=== PATIENT | female | born 1990 | race Caucasian/White ===

== ENCOUNTER 2018-01-13 23:17 | Emergency (ER) | payer MEDICAID, OTHER ==
[~2018-01-13] VITALS: Ht 172.7 cm; Wt 54.4 kg
[~2018-01-13 23:17] MED LIST: AZIT250T PO; ONDA8TAB62 PO; PREN1TAB PO
[2018-01-13 23:22] VITALS: BP 117/78
[2018-01-13] MEDS ORDERED: ketorolac trometh inj. 60 MG/2 ML VIAL IM ONE (23:40)
[2018-01-14] MEDS ORDERED: IBUP-1986 PO (00:25)
[2018-01-14] MEDS ORDERED: HYDR-565 PO (00:25)
== END 2018-01-14 00:59 | disposition home or self-care (01) ==
LOC: ER 23:17
DX: M62.830 Muscle spasm of back (principal); J45.909 Unspecified asthma, uncomplicated; F12.90 Cannabis use, unspecified, uncomplicated; Z86.14 Personal history of Methicillin resistant Staphylococcus aureus infection; Z90.49 Acquired absence of other specified parts of digestive tract; Z98.890 Other specified postprocedural states; Z56.0 Unemployment, unspecified; Z91.040 Latex allergy status; Z88.8 Allergy status to other drugs, medicaments and biological substances; Z79.2 Long term (current) use of antibiotics; Z79.899 Other long term (current) drug therapy
CPT/HCPCS: 96372; 99283; J1885

== ENCOUNTER 2018-11-13 19:07 | Emergency (ER) | payer MEDICAID ==
[~2018-11-13] VITALS: Ht 172.7 cm; Wt 71.6 kg
[~2018-11-13 19:07] MED LIST changes: +IBUP-1985 PO; +IBUP-1986 PO
[2018-11-13] MEDS ORDERED: morphine 4 MG/ML inj SYRINge IV PRN (20:50)
[2018-11-13] MEDS ORDERED: iohexol 300mg/ml 100ml inj. ONE (20:59)
[2018-11-13 21:17] LABS: URINE HCG NEGATIVE (NEG)
[2018-11-13 21:25] LABS: CLARITY,URINE CLEAR (Clear); COLOR,URINE YELLOW (Yellow); GLUCOSE, URINE NEGATIVE (Neg); KETONES,URINE NEGATIVE (Neg); LEUKOCYTE ESTERASE ,URINE NEGATIVE (Neg); NITRITES, URINE NEGATIVE (Neg); OCCULT BLOOD,URINE NEGATIVE (Neg); PH,URINE 6.5 (4.8-8.0); PROTEIN,URINE NEGATIVE (Neg); UROBILINOGEN,URINE 0.2 E.U/dL (0.2-1.0)
[2018-11-13 21:27] LABS: UA COLLECTION TYPE CLN CATCH MIDSTREAM
[2018-11-13 21:28] LABS: BASOPHILS % (AUTO) 0.6 % (0-1); EOSINOPHILS # (AUTO) 0.2 X10'3 (0-0.9); EOSINOPHILS % (AUTO) 3.3 % (0-6); HEMATOCRIT 37.8 % (35.0-45.0); HEMOGLOBIN 12.9 g/dl (12.0-16.0); LYMPHOCYTES # (AUTO) 2.7 X10'3 (1.1-4.8); LYMPHOCYTES % (AUTO) 35.9 % (21-51); MEAN CORPUSCULAR HEMOGLOBIN 28.9 PG (27.0-31.0); MEAN CORPUSCULAR HGB CONC 34.2 g/dL (33.0-36.5); MEAN CORPUSCULAR VOLUME 84.4 FL (78-98); MONOCYTES # (AUTO) 0.6 X10'3 (0-0.9); MONOCYTES % (AUTO) 8.3 % (2-12); NEUTROPHILS # (AUTO) 3.9 X10'3 (1.8-7.7); NEUTROPHILS % (AUTO) 51.9 % (42-75); PLATELET COUNT 128 X10'3 (140-440); RED BLOOD COUNT 4.48 X10'6 (4.20-5.60); RED CELL DISTRIBUTION WIDTH 15.3 % (11.5-14.5); WHITE BLOOD COUNT 7.5 X10'3 (4.5-11.0)
[2018-11-13 21:30] LABS: ALANINE AMINOTRANSFERASE 21 U/L (12-78); ALBUMIN 3.3 G/DL (3.4-5.0); ALBUMIN/GLOBULIN RATIO 1.1 (1.1-1.5); ALKALINE PHOSPHATASE 80 IU/L (46-116); ANION GAP 7 (8-16); ASPARTATE AMINO TRANSFERASE 14 U/L (10-37); BILIRUBIN,TOTAL 0.3 MG/DL (0.1-1.0); BLOOD UREA NITROGEN 7 MG/DL (7-18); BUN/CREATININE RATIO 13.2 (6.6-38.0); CALCIUM 8.7 MG/DL (8.5-10.1); CHLORIDE 104 MMOL/L (99-107); CREATININE 0.53 MG/DL (0.40-0.90); GLUCOSE 87 MG/DL (70-104); LIPASE 66 U/L (73-393); POTASSIUM 3.5 MMOL/L (3.5-5.1); SODIUM 138 MMOL/L (135-145); TOTAL CARBON DIOXIDE 26.9 MMOL/L (24-32); TOTAL PROTEIN 6.4 G/DL (6.4-8.2); eGFR > 90 ML/MIN
[2018-11-13] MEDS ORDERED: ketorolac trometh. 30mg/ml inj. IM ONE (21:35)
[2018-11-13] MEDS ORDERED: acyclovir 200 MG capsule PO STA (22:56)
[2018-11-13] MEDS ORDERED: IBUP-1985 PO (23:01)
[2018-11-13] MEDS ORDERED: ACYC-1 PO (23:01)
[2018-11-13 23:23] VITALS: BP 125/99
== END 2018-11-13 23:25 | disposition home or self-care (01) ==
LOC: ER 19:08
DX: A60.00 Herpesviral infection of urogenital system, unspecified (principal); R10.31 Right lower quadrant pain; J45.909 Unspecified asthma, uncomplicated; F17.200 Nicotine dependence, unspecified, uncomplicated; F10.99 Alcohol use, unspecified with unspecified alcohol-induced disorder; Z86.14 Personal history of Methicillin resistant Staphylococcus aureus infection; Z90.49 Acquired absence of other specified parts of digestive tract; Z98.890 Other specified postprocedural states; Z56.0 Unemployment, unspecified; Z88.8 Allergy status to other drugs, medicaments and biological substances; Z91.040 Latex allergy status; Z79.899 Other long term (current) drug therapy; Y90.9 Presence of alcohol in blood, level not specified
CPT/HCPCS: 36415; 80053; 81003; 81025; 83690; 85025; 87210; 87491; 87591; 96372; 99283; J1885; Q9967

== ENCOUNTER 2018-12-24 08:26 | Emergency (ER) | payer MEDICAID ==
[~2018-12-24] VITALS: Ht 172.7 cm; Wt 68.2 kg
[~2018-12-24 08:26] MED LIST changes: +ACYC-1 PO
[2018-12-24] MEDS ORDERED: proCHLORperazine 10 MG/2 ml inj IM ONE (10:10)
[2018-12-24] MEDS ORDERED: pantoprazole 40mg Tablet.DR PO STA (10:14)
[2018-12-24] MEDS ORDERED: sucralfate 1gm/10ml UD suspension PO ONE (10:15)
[2018-12-24 10:59] LABS: BASOPHILS % (AUTO) 0.7 % (0-1); EOSINOPHILS # (AUTO) 0.4 X10'3 (0-0.9); EOSINOPHILS % (AUTO) 6.5 % (0-6); HEMATOCRIT 37.5 % (35.0-45.0); HEMOGLOBIN 12.8 g/dl (12.0-16.0); LYMPHOCYTES % (AUTO) 30.6 % (21-51); MEAN CORPUSCULAR HEMOGLOBIN 29.1 PG (27.0-31.0); MEAN CORPUSCULAR HGB CONC 34.1 g/dL (33.0-36.5); MEAN CORPUSCULAR VOLUME 85.3 FL (78-98); MEAN PLATELET VOLUME 10.4 FL (7.4-10.4); MONOCYTES # (AUTO) 0.5 X10'3 (0-0.9); MONOCYTES % (AUTO) 8.2 % (2-12); NEUTROPHILS # (AUTO) 3.5 X10'3 (1.8-7.7); PLATELET COUNT 138 X10'3 (140-440); RED CELL DISTRIBUTION WIDTH 13.4 % (11.5-14.5); WHITE BLOOD COUNT 6.4 X10'3 (4.5-11.0)
[2018-12-24 11:13] LABS: ALANINE AMINOTRANSFERASE 18 U/L (12-78); ALBUMIN 3.4 G/DL (3.4-5.0); ALBUMIN/GLOBULIN RATIO 1.2 (1.1-1.5); ALKALINE PHOSPHATASE 67 IU/L (46-116); ANION GAP 10 (8-16); ASPARTATE AMINO TRANSFERASE 16 U/L (10-37); BILIRUBIN,TOTAL 0.3 MG/DL (0.1-1.0); BLOOD UREA NITROGEN 13 MG/DL (7-18); BUN/CREATININE RATIO 24.5 (6.6-38.0); CALCIUM 8.4 MG/DL (8.5-10.1); CHLORIDE 107 MMOL/L (99-107); CREATININE 0.53 MG/DL (0.40-0.90); GLUCOSE 98 MG/DL (70-104); SODIUM 140 MMOL/L (135-145); TOTAL CARBON DIOXIDE 23.5 MMOL/L (24-32); TOTAL PROTEIN 6.3 G/DL (6.4-8.2); eGFR > 90 ML/MIN
[2018-12-24] MEDS ORDERED: PANT-47 PO (11:37)
[2018-12-24] MEDS ORDERED: SUCR1ORA12 PO (11:37)
[2018-12-24] MEDS ORDERED: ONDA8TAB6 PO (11:37)
[2018-12-24 11:51] VITALS: BP 115/55
== END 2018-12-24 11:57 | disposition home or self-care (01) ==
LOC: ER 08:26
DX: R11.10 Vomiting, unspecified (principal); R10.10 Upper abdominal pain, unspecified; R53.1 Weakness; R53.83 Other fatigue; J45.909 Unspecified asthma, uncomplicated; F10.99 Alcohol use, unspecified with unspecified alcohol-induced disorder; Z86.14 Personal history of Methicillin resistant Staphylococcus aureus infection; Z90.49 Acquired absence of other specified parts of digestive tract; Z98.890 Other specified postprocedural states; Z56.0 Unemployment, unspecified; Z88.8 Allergy status to other drugs, medicaments and biological substances; Z91.040 Latex allergy status; Z79.899 Other long term (current) drug therapy; Y90.9 Presence of alcohol in blood, level not specified
CPT/HCPCS: 36415; 80053; 85025; 96372; 99283; J0780

== ENCOUNTER 2019-02-06 15:10 | Emergency (ER) | payer MEDICAID ==
[~2019-02-06] VITALS: Ht 172.7 cm; Wt 70.0 kg
[~2019-02-06 15:10] MED LIST changes: +ONDA8TAB6 PO; +PANT-47 PO; +SUCR1ORA12 PO
[2019-02-06 15:56] LABS: URINE HCG NEGATIVE (NEG)
[2019-02-06 16:00] LABS: CLARITY,URINE CLEAR (Clear); COLOR,URINE YELLOW (Yellow); GLUCOSE, URINE NEGATIVE (Neg); KETONES,URINE NEGATIVE (Neg); LEUKOCYTE ESTERASE ,URINE NEGATIVE (Neg); NITRITES, URINE NEGATIVE (Neg); OCCULT BLOOD,URINE NEGATIVE (Neg); PH,URINE 6.5 (4.8-8.0); PROTEIN,URINE NEGATIVE (Neg); UROBILINOGEN,URINE 0.2 E.U/dL (0.2-1.0)
[2019-02-06 16:00] LABS: BASOPHILS # (AUTO) 0.1 X10'3 (0-0.2); EOSINOPHILS # (AUTO) 0.2 X10'3 (0-0.9); HEMATOCRIT 37.9 % (35.0-45.0); HEMOGLOBIN 12.6 g/dl (12.0-16.0); LYMPHOCYTES # (AUTO) 2.3 X10'3 (1.1-4.8); LYMPHOCYTES % (AUTO) 30.6 % (21-51); MEAN CORPUSCULAR HEMOGLOBIN 26.4 PG (27.0-31.0); MEAN CORPUSCULAR HGB CONC 33.2 g/dL (33.0-36.5); MEAN CORPUSCULAR VOLUME 79.4 FL (78-98); MEAN PLATELET VOLUME 10.1 FL (7.4-10.4); MONOCYTES # (AUTO) 0.5 X10'3 (0-0.9); MONOCYTES % (AUTO) 6.1 % (2-12); NEUTROPHILS # (AUTO) 4.5 X10'3 (1.8-7.7); NEUTROPHILS % (AUTO) 59.3 % (42-75); PLATELET COUNT 186 X10'3 (140-440); RED BLOOD COUNT 4.78 X10'6 (4.20-5.60); WHITE BLOOD COUNT 7.6 X10'3 (4.5-11.0)
[2019-02-06 16:03] LABS: UA COLLECTION TYPE CLN CATCH MIDSTREAM
[2019-02-06 16:14] LABS: ALANINE AMINOTRANSFERASE 22 U/L (12-78); ALBUMIN 3.8 G/DL (3.4-5.0); ALBUMIN/GLOBULIN RATIO 1.1 (1.1-1.5); ALKALINE PHOSPHATASE 87 IU/L (46-116); ANION GAP 8 (8-16); ASPARTATE AMINO TRANSFERASE 16 U/L (10-37); BILIRUBIN,TOTAL 0.2 MG/DL (0.1-1.0); BLOOD UREA NITROGEN 7 MG/DL (7-18); BUN/CREATININE RATIO 8.8 (6.6-38.0); CALCIUM 8.7 MG/DL (8.5-10.1); CHLORIDE 106 MMOL/L (99-107); GLUCOSE 98 MG/DL (70-104); POTASSIUM 3.7 MMOL/L (3.5-5.1); SODIUM 142 MMOL/L (135-145); TOTAL CARBON DIOXIDE 28.4 MMOL/L (24-32); TOTAL PROTEIN 7.4 G/DL (6.4-8.2); eGFR 85 ML/MIN
[2019-02-06] MEDS ORDERED: dexamethasone sod phosphate 10mg/ml inj IV STA (16:33)
[2019-02-06] MEDS ORDERED: normal saline 1000ML IV soln IVB ONE (16:35)
[2019-02-06] MEDS ORDERED: ondansetron/PF 4mg/2ml inj IV ONE (16:35)
[2019-02-06] MEDS ORDERED: ketorolac tromethamine 15mg/ml inj. IV ONE (16:35)
[2019-02-06 18:21] VITALS: BP 111/70
== END 2019-02-06 18:25 | disposition home or self-care (01) ==
LOC: ER 15:14
DX: R10.31 Right lower quadrant pain (principal); R51 Headache; J45.909 Unspecified asthma, uncomplicated; Z86.14 Personal history of Methicillin resistant Staphylococcus aureus infection; Z98.890 Other specified postprocedural states; Z56.0 Unemployment, unspecified; Z91.040 Latex allergy status; Z88.8 Allergy status to other drugs, medicaments and biological substances; Z79.2 Long term (current) use of antibiotics; Z79.899 Other long term (current) drug therapy
CPT/HCPCS: 36415; 76856; 80053; 81003; 81025; 85025; 85610; 93005; 96361; 96374; 96375; 99284; J1100; J1885; J2405; J7030

== ENCOUNTER 2019-03-09 09:59 | Emergency (ER) | payer MEDICAID ==
[~2019-03-09] VITALS: Ht 172.7 cm; Wt 70.9 kg
[2019-03-09 10:38] LABS: CLARITY,URINE CLEAR (Clear); COLOR,URINE STRAW (Yellow); GLUCOSE, URINE NEGATIVE (Neg); KETONES,URINE NEGATIVE (Neg); LEUKOCYTE ESTERASE ,URINE NEGATIVE (Neg); NITRITES, URINE NEGATIVE (Neg); OCCULT BLOOD,URINE NEGATIVE (Neg); PROTEIN,URINE NEGATIVE (Neg); UROBILINOGEN,URINE 0.2 E.U/dL (0.2-1.0)
[2019-03-09 10:39] LABS: UA COLLECTION TYPE CLN CATCH MIDSTREAM; URINE HCG POSITIVE (NEG)
[2019-03-09 10:57] LABS: BASOPHILS % (AUTO) 0.5 % (0-1); EOSINOPHILS # (AUTO) 0.2 X10'3 (0-0.9); EOSINOPHILS % (AUTO) 2.1 % (0-6); HEMATOCRIT 38.2 % (35.0-45.0); HEMOGLOBIN 12.6 g/dl (12.0-16.0); LYMPHOCYTES # (AUTO) 1.7 X10'3 (1.1-4.8); LYMPHOCYTES % (AUTO) 21.1 % (21-51); MEAN CORPUSCULAR HEMOGLOBIN 24.9 PG (27.0-31.0); MEAN CORPUSCULAR HGB CONC 33.1 g/dL (33.0-36.5); MEAN CORPUSCULAR VOLUME 75.3 FL (78-98); MEAN PLATELET VOLUME 11.5 FL (7.4-10.4); MONOCYTES # (AUTO) 0.5 X10'3 (0-0.9); MONOCYTES % (AUTO) 5.7 % (2-12); NEUTROPHILS # (AUTO) 5.8 X10'3 (1.8-7.7); NEUTROPHILS % (AUTO) 70.6 % (42-75); PLATELET COUNT 194 X10'3 (140-440); RED BLOOD COUNT 5.08 X10'6 (4.20-5.60); RED CELL DISTRIBUTION WIDTH 15.2 % (11.5-14.5); WHITE BLOOD COUNT 8.2 X10'3 (4.5-11.0)
[2019-03-09] MEDS ORDERED: normal saline 1000ML IV soln IVB ONE (11:00)
[2019-03-09 11:20] LABS: ALANINE AMINOTRANSFERASE 17 U/L (12-78); ALBUMIN 4.2 G/DL (3.4-5.0); ALKALINE PHOSPHATASE 87 IU/L (46-116); ANION GAP 11 (8-16); ASPARTATE AMINO TRANSFERASE 16 U/L (10-37); BILIRUBIN,TOTAL 0.3 MG/DL (0.1-1.0); BLOOD UREA NITROGEN 9 MG/DL (7-18); BUN/CREATININE RATIO 15.3 (6.6-38.0); CALCIUM 9.3 MG/DL (8.5-10.1); CHLORIDE 105 MMOL/L (99-107); CREATININE 0.59 MG/DL (0.40-0.90); GLUCOSE 93 MG/DL (70-104); LIPASE 187 U/L (73-393); POTASSIUM 3.9 MMOL/L (3.5-5.1); SODIUM 138 MMOL/L (135-145); TOTAL CARBON DIOXIDE 21.8 MMOL/L (24-32); TOTAL PROTEIN 8.3 G/DL (6.4-8.2); eGFR > 90 ML/MIN
[2019-03-09 13:09] VITALS: BP 131/73
== END 2019-03-09 13:12 | disposition home or self-care (01) ==
LOC: ER 09:59
DX: O9A.211 Injury, poisoning and certain other consequences of external causes complicating pregnancy, first trimester (principal); M25.532 Pain in left wrist; O34.81 Maternal care for other abnormalities of pelvic organs, first trimester; N83.291 Other ovarian cyst, right side; O99.511 Diseases of the respiratory system complicating pregnancy, first trimester; J45.909 Unspecified asthma, uncomplicated; O26.891 Other specified pregnancy related conditions, first trimester; R42 Dizziness and giddiness; Z56.0 Unemployment, unspecified; Z90.49 Acquired absence of other specified parts of digestive tract; Z98.890 Other specified postprocedural states; Z88.1 Allergy status to other antibiotic agents; Z3A.01 Less than 8 weeks gestation of pregnancy; Z91.040 Latex allergy status; Z79.899 Other long term (current) drug therapy; X50.1XXA Overexertion from prolonged static or awkward postures, initial encounter; Y93.89 Activity, other specified; Y92.89 Other specified places as the place of occurrence of the external cause; Y99.9 Unspecified external cause status
CPT/HCPCS: 36415; 73110; 76805; 80053; 81003; 81025; 83690; 84702; 85025; 96360; 99284; J7030

== ENCOUNTER 2021-07-16 10:23 | Emergency (ER) | payer MEDICAID ==
[~2021-07-16] VITALS: Ht 172.7 cm; Wt 67.3 kg
[2021-07-16 10:29] VITALS: BP 190/98
[2021-07-16] MEDS ORDERED: azithromycin 250mg tablet PO ONE (10:45)
[2021-07-16] MEDS ORDERED: CefTRIAXone 500MG IM Kit w/LIDOcaine IM ONE (10:45)
[2021-07-16] MEDS ORDERED: CefTRIAXone 1000mg IM Kit (w/lidocaine diluent) IM ONE (10:50)
[2021-07-16 11:20] LABS: CLARITY,URINE CLEAR (Clear); COLOR,URINE YELLOW (Yellow); GLUCOSE, URINE NEGATIVE (Neg); KETONES,URINE NEGATIVE (Neg); LEUKOCYTE ESTERASE ,URINE TRACE (Neg); NITRITES, URINE NEGATIVE (Neg); OCCULT BLOOD,URINE NEGATIVE (Neg); PROTEIN,URINE NEGATIVE (Neg); UROBILINOGEN,URINE 0.2 E.U/dL (0.2-1.0)
--- NOTE | 2021-07-16 11:37 | NUR ---
[facility] CONTACTED. SPOKE WITH [place]. WILL SEND OFFICER FOR REPORT FROM PT.
[2021-07-16 11:47] LABS: URINE HCG NEGATIVE (NEG)
[2021-07-16 11:48] LABS: UA COLLECTION TYPE CLN CATCH MIDSTREAM
[2021-07-16 11:51] LABS: BACTERIA,URINE NONE SEEN /HPF (Neg); MUCUS STRANDS NONE SEEN /LPF (Neg); RBC,URINE NONE SEEN /HPF (0-2); SQUAMOUS EPITHELIAL CELL,UR MODERATE /LPF (FEW); TRICHOMONAS,URINE FEW /HPF (NEGATIVE); WBC,URINE 0-4 /HPF (0-4)
--- NOTE | 2021-07-16 12:15 | NUR ---
pt made aware that an officer would come to take her report and she can discuss SART exam with them. verbalized understanding.
--- NOTE | 2021-07-16 13:20 | NUR ---
pt was seen walking out of er by registration staff. per staff pt stated she "did not want to get the e commerce marketing analyst involved"
== END 2021-07-16 14:20 | disposition home or self-care (01) ==
LOC: ER 10:24
DX: R30.0 Dysuria (principal); J45.909 Unspecified asthma, uncomplicated; Z20.2 Contact with and (suspected) exposure to infections with a predominantly sexual mode of transmission; Z56.0 Unemployment, unspecified; Z90.49 Acquired absence of other specified parts of digestive tract; Z88.1 Allergy status to other antibiotic agents; Z91.040 Latex allergy status; Z79.899 Other long term (current) drug therapy; T74.21XA Adult sexual abuse, confirmed, initial encounter
CPT/HCPCS: 36415; 81001; 81025; 87088; 87491; 87591; 96372; 99283; J0696

== ENCOUNTER 2023-03-22 22:07 | Emergency (ER) | payer MEDICAID ==
[~2023-03-22] VITALS: Ht 172.7 cm; Wt 61.8 kg
[2023-03-22 22:20] VITALS: BP 180/69; PULSE 93; RESP 20; TEMP 98.4; O2SAT 99
[2023-03-22] MEDS ORDERED: ALBU18HF2 INH (23:38)
[2023-03-22] MEDS ORDERED: MONT-47 PO (23:38)
[2023-03-22] MEDS ORDERED: AZIT-21 PO (23:38)
== END 2023-03-22 23:46 | disposition home or self-care (01) ==
LOC: ER 22:08
DX: J06.9 Acute upper respiratory infection, unspecified (principal); J45.909 Unspecified asthma, uncomplicated; Z86.14 Personal history of Methicillin resistant Staphylococcus aureus infection; Z90.49 Acquired absence of other specified parts of digestive tract; Z98.890 Other specified postprocedural states; Z72.89 Other problems related to lifestyle; Z56.0 Unemployment, unspecified
CPT/HCPCS: 99283

== ENCOUNTER 2023-06-11 20:56 | Emergency (ER) | payer MEDICAID ==
[~2023-06-11] VITALS: Ht 172.7 cm; Wt 60.9 kg
[~2023-06-11 20:56] MED LIST changes: +ALBU18HF2 INH; +MONT-47 PO
[2023-06-11 21:12] VITALS: BP 166/100; PULSE 88; RESP 16; TEMP 98.4; O2SAT 97
[2023-06-11] MEDS ORDERED: FLUC100T40 PO (21:44)
[2023-06-11] MEDS ORDERED: METR-159 PO (21:44)
== END 2023-06-11 21:54 | disposition home or self-care (01) ==
LOC: ER 20:57
DX: B37.31 Acute candidiasis of vulva and vagina (principal); N76.0 Acute vaginitis; Z88.8 Allergy status to other drugs, medicaments and biological substances; Z91.040 Latex allergy status; Z79.2 Long term (current) use of antibiotics; Z79.1 Long term (current) use of non-steroidal anti-inflammatories (NSAID); Z79.899 Other long term (current) drug therapy; Z98.890 Other specified postprocedural states
CPT/HCPCS: 36415; 87210; 87491; 87591; 99284; Q0112

== ENCOUNTER 2023-09-20 15:03 | Emergency (ER) | payer MEDICAID ==
[~2023-09-20] VITALS: Ht 172.7 cm; Wt 67.6 kg
[2023-09-20 15:08] VITALS: BP 157/104; PULSE 80; RESP 16; TEMP 97.8; O2SAT 100
[2023-09-20] MEDS ORDERED: SULF1TAB49 PO (16:01)
[2023-09-20] MEDS ORDERED: CEPH-585 PO (16:01)
== END 2023-09-20 16:35 | disposition home or self-care (01) ==
LOC: ER 15:04
DX: L03.113 Cellulitis of right upper limb (principal); J45.909 Unspecified asthma, uncomplicated; Z98.890 Other specified postprocedural states; Z72.89 Other problems related to lifestyle; Z56.0 Unemployment, unspecified; Z88.8 Allergy status to other drugs, medicaments and biological substances; Z79.899 Other long term (current) drug therapy; Z79.2 Long term (current) use of antibiotics
CPT/HCPCS: 99283

== ENCOUNTER 2023-09-21 18:09 | Emergency (ER) | payer MEDICAID ==
[~2023-09-21] VITALS: Ht 172.7 cm; Wt 67.6 kg
[~2023-09-21 18:09] MED LIST changes: +CEPH-585 PO; +SULF1TAB49 PO
[2023-09-21 18:33] VITALS: BP 148/91; PULSE 68; RESP 18; TEMP 97.9; O2SAT 98
[2023-09-21 20:04] LABS: BASOPHILS # (AUTO) 0.1 X10'3 (0-0.2); EOSINOPHILS # (AUTO) 0.2 X10'3 (0-0.9); MONOCYTES # (AUTO) 0.4 X10'3 (0-0.9)
[2023-09-21 20:05] LABS: BASOPHILS % (AUTO) 0.7 % (0-1); EOSINOPHILS % (AUTO) 2.2 % (0-6); HEMATOCRIT 34.3 % (35.0-45.0); HEMOGLOBIN 10.8 g/dl (12.0-16.0); LYMPHOCYTES % (AUTO) 25.9 % (21-51); MEAN CORPUSCULAR HEMOGLOBIN 20.8 PG (27.0-31.0); MEAN CORPUSCULAR HGB CONC 31.6 g/dL (33.0-36.5); MEAN CORPUSCULAR VOLUME 66.1 FL (78-98); MEAN PLATELET VOLUME 9.8 FL (7.4-10.4); MONOCYTES % (AUTO) 5.6 % (2-12); NEUTROPHILS # (AUTO) 5.1 X10'3 (1.8-7.7); NEUTROPHILS % (AUTO) 65.6 % (42-75); PLATELET COUNT 153 X10'3 (140-440); RED CELL DISTRIBUTION WIDTH 18.6 % (11.5-14.5); WHITE BLOOD COUNT 7.8 X10'3 (4.5-11.0)
[2023-09-21 20:14] LABS: ALBUMIN 3.5 G/DL (3.4-5.0); ANION GAP 7 (8-16); BLOOD UREA NITROGEN 4 MG/DL (7-18); BUN/CREATININE RATIO 5.3 (10.0-20.0); CALCIUM 8.6 MG/DL (8.5-10.1); CHLORIDE 102 MMOL/L (99-107); CREATININE 0.76 MG/DL (0.40-0.90); GLUCOSE 107 MG/DL (70-104); POTASSIUM 3.9 MMOL/L (3.5-5.1); SODIUM 136 MMOL/L (135-145); eCRCL 106 ML/MIN; eGFR 88 ML/MIN
[2023-09-21 20:25] LABS: URINE HCG NEGATIVE (NEG)
[2023-09-21 20:28] LABS: BILIRUBIN,URINE NEGATIVE (Neg); CLARITY,URINE CLEAR (Clear); COLOR,URINE YELLOW (Yellow); GLUCOSE, URINE NEGATIVE (Neg); KETONES,URINE NEGATIVE (Neg); LEUKOCYTE ESTERASE ,URINE TRACE (Neg); NITRITES, URINE NEGATIVE (Neg); OCCULT BLOOD,URINE NEGATIVE (Neg); PROTEIN,URINE NEGATIVE (Neg); UROBILINOGEN,URINE 0.2 E.U/dL (0.2-1.0)
[2023-09-21 20:41] LABS: UA COLLECTION TYPE CLN CATCH MIDSTREAM
[2023-09-21 20:47] LABS: BACTERIA,URINE FEW /HPF (Neg); RBC,URINE 0-2 /HPF (0-2); SQUAMOUS EPITHELIAL CELL,UR MODERATE /LPF (FEW); TRANSITIONAL EPI CELLS,URINE FEW /HPF; WBC,URINE 0-4 /HPF (0-4)
[2023-09-21 21:17] LABS: ANISOCYTOSIS 2+; MICROCYTOSIS 2+; PLATELET ESTIMATE NORMAL
[2023-09-21 21:19] LABS: HYPOCHROMASIA 1+; POLYCHROMASIA FEW
[2023-09-21 21:21] LABS: ELLIPTOCYTES 1+; TARGET CELLS FEW
[2023-09-21 21:22] LABS: LARGE PLATELETS FEW
[2023-09-21 21:57] LABS: URINE AMPHETAMINE SCREEN POSITIVE (Neg); URINE BARBITUATE SCREEN NEGATIVE (Neg); URINE BENZODIAZEPINES SCREEN NEGATIVE (Neg); URINE CANNABINOID SCREEN POSITIVE (Neg); URINE COCAINE SCREEN NEGATIVE (Neg); URINE METHADONE SCREEN NEGATIVE (Neg); URINE PHENCYCLIDINE SCREEN NEGATIVE (Neg)
== END 2023-09-21 21:15 | disposition home or self-care (01) ==
LOC: ER 18:09
DX: L03.113 Cellulitis of right upper limb (principal); R53.1 Weakness; Z88.8 Allergy status to other drugs, medicaments and biological substances; Z79.899 Other long term (current) drug therapy; Z79.2 Long term (current) use of antibiotics
CPT/HCPCS: 36415; 71045; 80048; 80305; 81001; 81025; 83605; 83735; 84145; 85008; 85025; 87040; 87088; 93005; 99285

== ENCOUNTER 2023-11-22 09:44 | Emergency (ER) | payer MEDICAID ==
[~2023-11-22] VITALS: Ht 172.7 cm; Wt 68.2 kg
[~2023-11-22 09:44] MED LIST changes: -CEPH-585 PO; -SULF1TAB49 PO
[2023-11-22] MEDS: LIDOcaine 1% W/epiNEPHrine 1:100,000 20ml vial SQ ONE (10:59)
[2023-11-22] MEDS ORDERED: SULF1TAB45 PO (11:04)
[2023-11-22] MEDS ORDERED: CEPH-585 PO (11:04)
[2023-11-22 11:20] VITALS: BP 140/86; PULSE 99; RESP 18; TEMP 97.3; O2SAT 95
== END 2023-11-22 11:23 | disposition home or self-care (01) ==
LOC: ER 09:44
DX: L02.411 Cutaneous abscess of right axilla (principal); L03.111 Cellulitis of right axilla; J45.909 Unspecified asthma, uncomplicated; Z88.8 Allergy status to other drugs, medicaments and biological substances; Z91.040 Latex allergy status; Z79.899 Other long term (current) drug therapy; Z79.2 Long term (current) use of antibiotics; Z79.1 Long term (current) use of non-steroidal anti-inflammatories (NSAID); Z98.890 Other specified postprocedural states
CPT/HCPCS: 10060; 87070; 87075; 87077; 87186; 99283